=== PATIENT | female | born 1970 | race Caucasian/White ===

== ENCOUNTER 2024-04-28 23:19 | Emergency (ER) | payer OTHER ==
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
== END 2024-04-29 00:08 | disposition home or self-care (01) ==
LOC: ER 23:19
DX: T76.21XA Adult sexual abuse, suspected, initial encounter (principal); Z20.2 Contact with and (suspected) exposure to infections with a predominantly sexual mode of transmission
CPT/HCPCS: 99282